=== PATIENT | female | born 1965 | race Caucasian/White ===

== ENCOUNTER 2016-06-11 21:22 | Emergency (ER) | payer OTHER ==
[2016-06-11 21:34] VITALS: RESP 20
[2016-06-11] MEDS ORDERED: IBUPROFEN 600 MG TAB PO ONE (21:52)
--- NOTE | 2016-06-11 22:05 | CPEKG ---
Heart Rate: 71 RR Interval: 845 P-R Interval: 168 QRSD Interval: 86 QT Interval: 412 QTC Interval: 448 P Mills: 60 QRS Mills: -31 T Wave Mills: 145 EKG Severity - OTHERWISE NORMAL ECG - EKG Impression: SINUS RHYTHM EKG Impression: LEFT AXIS DEVIATION Electronically Signed By: Cris Barnett 11-Jun-2016 23:06:26
--- NOTE | 2016-06-12 00:04 | EDPHY ---
H & P Stated Complaint: fever, cough, chills, chest pressure Time Seen by Provider: 06/11/16 21:51 HPI/ROS: Chief complaint: Cold symptoms History of present illness: This is a 51-year-old female who presents to the emergency department for cold symptoms. Patient reports the onset of symptoms over the last day. She has had fever, sore throat, chest congestion and cough with green sputum. She denies precipitating factors. She denies alleviating factors. She denies other associated signs or symptoms including no rash. - Medical/Surgical History Hx Asthma: No Hx Chronic Respiratory Disease: No Hx Diabetes: No Hx Cardiac Disease: Yes Hx Renal Disease: No Hx Cirrhosis: No Hx Alcoholism: No Hx HIV/AIDS: No Hx Splenectomy or Spleen Trauma: No Other PMH: pmh- htn - Social History Smoking Status: Former smoker - Physical Exam Exam: General Appearance: Alert and no distress. Eyes: Pupils equal and round no injection. ENT: Tympanic membranes, external auditory canals, external ears and surrounding soft tissue including over the mastoids are unremarkable. Nasopharynx is not injected. There is no rhinorrhea. Oropharynx is mildly injected. There is no edema. There is no exudate. There is no asymmetry. The uvula is midline. No elevation of the tongue. There is no hoarseness, no drooling, no trismus, no stridor. Respiratory: Chest is nontender, lungs are clear to auscultation. Cardiac: regular rate and rhythm. Musculoskeletal: Neck is supple and nontender. Extremities have full range of motion and are nontender. Skin: No rashes or lesions. Neurological: Alert and oriented x4. No meningismus. Constitutional: Initial Vital Signs Temperature (C) 38.5 C H 06/11/16 21:31 Heart Rate 81 06/11/16 21:31 Respiratory Rate 20 06/11/16 21:31 Blood Pressure 135/105 H 06/11/16 21:31 O2 Sat (%) 93 06/11/16 21:31 O2 Delivery Mode Room Air Allergies/Adverse Reactions: amoxicillin Allergy (Verified 06/11/16 21:31) Home Medications: Medication Instructions Recorded Lisinopril/Hctz 20/12.5MG 1 ea PO DAILY #30 tab 06/18/15 [Zestoretic/Prinzide 20/12.5MG (*)] Atenolol 06/11/16 Oseltamivir Phosphate [Tamiflu 75 75 mg PO BID #9 cap 06/12/16 mg (*)] Medical Decision Making ED Course/Re-evaluation: Patient seen under the supervision of my secondary supervising physician Dr. Prudencio Blackmon. Patient presents to the emergency department for cold symptoms. On presentation she is nontoxic. Chest x-ray negative. Influenza A positive by swab. She is within treatment time frame. I have discussed risks and benefits of Tamiflu treatment and she would like to start treatment. She is discharged home. Home care is discussed. She is asked to follow up with her primary care doctor next week for recheck. Return precautions are given. Patient voiced understanding and agreement with plan. Differential Diagnosis: Included but not limited to bronchitis, pneumonia, influenza, upper respiratory tract infection - Data Points Laboratory Results: 06/11/16 22:15 Influenza A & B (PCR) POSITIVE FOR FLU A H (NEGATIVE) Medications Given: Discontinued Medications Ibuprofen (Motrin) 600 mg PO EDNOW ONE Stop: 06/11/16 21:53 Last Admin: 06/11/16 21:55 Dose: 600 mg Departure - Departure Disposition: Home, Routine, Self-Care Clinical Impression: Influenza A Condition: Good Instructions: Influenza (ED) Additional Instructions: Follow-up with your primary care doctor next week for recheck If symptoms worsen or new symptoms develop return to the emergency department for recheck Referrals: Gila Heredia MD [Primary Care Provider] - As per Instructions Prescriptions: Oseltamivir Phosphate [Tamiflu 75 mg (*)] 75 mg PO BID #9 cap
[2016-06-12] MEDS ORDERED: OSELTAMIVIR PHOSPHATE 75 MG CAP PO ONE (00:15)
[2016-06-12 00:27] VITALS: BP 119/83; PULSE 74; TEMP 98.1; O2SAT 94
== END 2016-06-12 00:27 | disposition home or self-care (01) ==
DX: J10.1 Influenza due to other identified influenza virus with other respiratory manifestations (principal); I10 Essential (primary) hypertension; Z87.891 Personal history of nicotine dependence

== ENCOUNTER → 2017-07-22 | Outpatient (CLI) | payer OTHER | LOC: BRMIMAGING 08:58 | PROVIDERS: ATTEND Internal Medicine | DX: R92.8 Other abnormal and inconclusive findings on diagnostic imaging of breast (principal) | CPT/HCPCS: 76641-PO ==